=== PATIENT | female | born 1980 | race Hispanic/Latino ===

== ENCOUNTER 2025-06-14 11:38 | Emergency (ER) | payer SELFPAY ==
[~2025-06-14] VITALS: Ht 157.5 cm; Wt 74.8 kg
[2025-06-14] MEDS ORDERED: AMOX1TAB16 PO (11:49)
--- NOTE | 2025-06-14 11:50 | ERN ---
ED Note History of Present Illness Stated Complaint: DOG BITE Chief Complaint: Animal Bite Time Seen by MD: 11:42 Time Seen by Midlevel: 11:45 Dictation: 44 Year old female coming in for evaluation after dog bite lead happened yesterday to the right elbow area. Patient states she does not know her last tetanus was not does not know if the dog was vaccinated. Patient stated was a stray dog. Allergies: Coded Allergies: No Known Drug Allergies (Verified Allergy, Unknown, 02/09/14) Past Medical History Past Medical History: No Pertinent History Surgical History: None Review of System Dictation Constitutional: Negative for fever,chills, and weight loss Eyes: Negative for injury, pain,redness, and discharge ENT: Negative for injury,pain or swelling Cardiovascular: Negative for chest pain, palpitations, and edema Respiratory: Negative for shortness of breath, cough, and wheezing, Abdomen/GI: Negative for abdominal pain, nausea, vomiting, diarrhea, and constipation Back: Negative for injury and pain : Negative for injury, bleeding and discharge MS/Extremity: Negative for injury and deformity Skin: Negative for rash, and discoloration, dog bite to the right elbow Neuro: Negative for headache, weakness, numbness, tingling, and seizure Psych: Negative for suicide ideation, homicidal ideation, and hallucinations Review of Systems: was completed Initial Vital Sign VS Vital Signs Date Time Temp Pulse Resp B/P (MAP) Pulse Ox O2 Delivery O2 Flow Rate FiO2 06/14/25 11:42 98.2 74 18 146/55 98 Physical Exam Dictation General: awake, alert, NAD Head/Face: Normocephalic, atraumatic Eyes: PERRL, EOMI, vision at baseline ENT: oral cavity clear, TMs clear, no signs of infection Neck: Trachea midline, supple, no nuchal rigidity Cardiovascular: RRR, normal S1/S2, No MRGs, no JVD Respiratory: CTAB, no respiratory distress, No rales or wheezes Abdomen: Soft, non-tender, non-distended, normal bowel sounds, no guarding or rebound. Skin: Warm, dry, normal turgor, no rash, two puncture wounds in the right elbow, scab already forming, minimal bruising, no drainage, no redness, no streaking MS/Extremity: Pulses equal, no cyanosis, neurovascular intact, FROM Neuro: COAx4, GCS 15, strength 5/5, CN 2-12 intact, normal cerebellar exam, normal gait, Psych: Normal behavior, mood, and affect normal ED Course ED Course Vital Signs Date Time Temp Pulse Resp B/P (MAP) Pulse Ox O2 Delivery O2 Flow Rate FiO2 06/14/25 11:42 98.2 74 18 146/55 98 Medical Decision Making MDM MDM: 44 Year old female coming in for evaluation after dog bite lead happened yesterday to the right elbow area. Patient states she does not know her last tetanus was not does not know if the dog was vaccinated. Patient stated was a stray dog. Patient received tetanus vaccine here, pain management in [facility] we will be notified. We will prescribe patient antibiotics to take outpatient. Differential diagnosis: Infected wound, laceration, avulsion Rationale: Tests considered and ordered secondary to shared decision making include: Previous outside records reviewed: Old ER visits. Risk of complication and/or morbidity or mortality of patient management: None Medications-Per medication reconciliation Need for hospitalization: Patient does not meet criteria for hospitalization. Need for emergency major/minor surgery: No There are no social concerns with this patient. Prescription drug management Prescriptions will include symptomatic care Patient's prior external medical records from other ER visits were reviewed by me as indicated. Prior testing and results from previous visits were reviewed. Prior tests were taken into account with medical decision making and resource u tilization, independent historian/historians were used to obtain complete medical history. I independently interpreted the test that were performed, results were reviewed by me and considered findings on radiology if ordered. Medical management and examination interpretation discussions were had by me with other qualified healthcare professionals as indicated for the patient's ca re. DX & DISP Disposition: Discharge Departure Impression: Primary Impression: Dog bite Condition: Stable Scripts Amoxicillin/Potassium Clav (Amox Tr-K Clv 875-125 mg Tab) 875 Mg-125 Mg Tablet 1 EACH PO BID for 5 Days, #10 TAB 0 Refills Prov: ARNAUD DISLA ANESTHESIA ATTENDING 06/14/25 Additional Instructions: Keep area clean and dry. Return to the hospital if you notice any signs of infection. Take antibiotics as prescribed. Follow up with a primary doctor. Time of Disposition: 11:49 ARNAUD DISLA NP Jun 14, 2025 11:50
[2025-06-14 12:09] VITALS: BP 144/57; PULSE 74; RESP 16; TEMP 98.2; O2SAT 97
--- NOTE | 2025-06-14 12:33 | NUR ---
[facility] SPOKE TO ZAYNAB STATED THEY WILL CONTACT PT REGARDING ANIMAL BITE FOR REPORT. PT WAS MADE AWARE FOR CALL BACK PENDING.
--- NOTE | 2025-06-14 12:34 | NUR ---
BITE TO RUE CLEANED AND WRAPPED, T-DAP GIVEN PT GIVEN INSTRUCTIONS FOR HOME. DRIVEN HOME BY FAMILY.
== END 2025-06-14 12:37 | disposition home or self-care (01) ==
LOC: EDH 11:38
DX: S51.051A Open bite, right elbow, initial encounter (principal); W54.0XXA Bitten by dog, initial encounter; Y93.89 Activity, other specified; Y92.89 Other specified places as the place of occurrence of the external cause; Y99.8 Other external cause status
CPT/HCPCS: 90471; 90714; 99283